=== PATIENT | male | born 1965 | race Caucasian/White ===

== ENCOUNTER 2025-02-28 00:46 | Day surgery (SDC) | payer BC, SELFPAY ==
[2025-02-03 13:54] VITALS: BMI 29.3
--- OUTSIDE RECORDS SUMMARY | 2025-02-28 00:51 | XMS_ITS | Continuity of Care Document ---
Author Organization [facility] Address [address] [place] [address] Phone Care Team Providers Care Emr Analyst Name Role Phone Tai Holley DO Unavailable Unavailable Advance Directives Directive Yes / No Effective Date File Name No Information Encounters Encounter Description Practice Location Reason(s) For Visit Diagnoses Date Provider Providers [facility] [address], [place], [place], [id number], [place] tel:[phone] [facility] No Information Leydi Mejia. [address] [place], [address], [place]. tel: [phone] Family History Family Member Type Diagnosis Age At Onset No Information Payers Payer name Insurance type Covered libertarian ID Authoriza tion(s) No Information Social History Type Description Quantity Date Captured Comments Sex Male Smoking Status No Information Chief Complaint And Reason For Visit No Information Reason For Referral Reason For Referral No Information History Of Present Illness Encounter Date Complaint History Of Prese nt Illness No Information Functional Status Date Functional Assessmen t No Information Instructions Date Instruction Additional Infor mation No Information Assessments Type Assessment Date No Information Patient Care Teams Name Effective Dates (start - stop) Status Members No Information
--- OUTSIDE RECORDS SUMMARY | 2025-02-28 00:51 | XMS_ITS | Data Portability ---
Author Organization [facility] Lucero Duong Address [address] [place] [address] Care Team Providers Care Lumber Hacker Name Role Phone GEENA HAM Primary Care Provider Assessment Encounter Date Assessment Date Assessment LastModified by Organization Details LastModified Time 01/06/2024 01/06/2024 Podiatry. Diabetic eye exam. Blood work. Neurology. Continue current therapy. Follow-up 4 months. Not available 01/31/2024 18:06:32 09/07/2024 09/07/2024 blood work. Healthy lifestyle care instructions. Colonoscopy. Declines pneumococcal vaccination orthopedic referral for trigger finger follow up 6 months podiatry for diabetic foot exam [email or web address] Not available 09/11/2024 18:52:16 Plan of Treatment Reminders Order Date Submit Date Provider Last Modified By Organization Details Last Modified Time Details Appointments ANY 15 2024 09:00A M Geena Ham MD Not available Not available Not available Lab HbA1c (hemoglob in A1c), blood 2024 025 KRISTY Chacon, [address], [address], [place], [address], 09/08/2024 06:20:09 albumin/c reatinine , mass ratio, urine 2024 025 KRISTY Chacon, [address], [address], [place], [address], 09/08/2024 06:20:06 CBC w/ auto diff 2024 025 KRISTY Chacon, [address]22 [address], [address], [place], [address], 09/08/2024 06:20:10 CMP, serum or plasma 2024 025 [place] [facility], [address], [address], [place], [address], 09/08/2024 06:20:08 lipid panel, serum 2024 025 [facility], [address], [address], [place], [address], 09/08/2024 06:20:07 vitamin B12 + folate, serum or blood 2023 024 [facility], [facility] [address], [address], [place], [address], 01/07/2024 08:25:24 CBC w/ auto diff 2023 024 [facility], [facility] [address], [address], [place], [address], 01/07/2024 08:25:26 CMP, serum or plasma 2023 024 [facility], [address] [place], [place] [address], [address], [place], [address], 01/07/2024 08:25:23 RPR (rapid plasma reagin), serum 2023 024 [facility], [address] [place], [place] [address], [address], [place], [address], 01/07/2024 08:25:28 PSA, total, serum or plasma 2023 024 [facility], [address] [facility] [address], [address], [place], [address], 01/07/2024 08:25:29 HbA1c (hemoglob in A1c), blood 2023 024 [facility], [address] [facility], [address], [place], [address], 01/07/2024 08:25:25 albumin/c reatinine , mass ratio, urine 2023 024 [facility], [address] [facility], [address], [place], [address], 01/07/2024 08:25:20 lipid panel, serum 2023 024 KRISTY [facility], [address] [facility], [address], [place], [address], 01/07/2024 08:25:21 Referral orthopedi c surgeon referral 2024 025 KRISTY Morejon MD, [address], [place], [address], 09/14/2024 13:10:[address] referral 2023 024 KRISTY Lynn MD, [address] [facility], [address], [address], 02/05/2024 13:44:10 podiatris t referral 2023 024 [facility]IR[facility], [address], [address], [place], [address], 01/31/2025 12:27:34 Procedures colonosco py screening (PROC) 2024 025 [facility], [address], [address], [place], [address], 01/25/2025 16:43:31 Surgeries None recorded. Imaging None recorded. Medication Orders None recorded. Patient TargetsNo targets recorded. Patient Instructions Encounter Date Encounter Id Patient Instructions Last Modified By Organization Details Last Modified Time 01/06/2024 [id number] diabetic eye exam* KRISTY Not available 02/12/2024 10:26:38 09/07/2024 [id number] A healthy lifestyle: care instructions [email or web address] Not available 09/07/2024 11:42:18 Reason for Referral Director Financial Planning Referral for Type 2 diabetes mellitus Referring Physician: Geena Ham, Internal Medicine, Encounter Date: 01/06/2024 Neurologist Referral for Mem ory impairment Referring Physician: Geena Ham, Internal Medicine, Encounter Date: 01/06/2024 Orthopedic Surgeon Referral for Trigger finger of right hand Referring Physician: Geena Ham, Internal Medicine, Encounter Date: 09/07/2024 Results Created Date Observation Date Name Description Value Unit Range Abnormal Flag Note LastModifiedBy Organization Detail LastModifiedTime 01/06/20 24 01/07/2024 ALBUM IN/CR EATIN INE RATIO ,URIN E creatinine, urine 97.0 mg/dL notest ab. Not Available [facility] ([facility]) [address] [place], [address], 01/07/2024 08:25:20 01/06/20 24 01/07/2024 ALBUM IN/CR EATIN INE RATIO ,URIN E albumin, urine 6.6 ug/mL notest ab. Not Available [facility] ([facility]) [address] [place], [address], 01/07/2024 08:25:20 01/06/20 24 01/07/2024 ALBUM IN/CR EATIN INE RATIO ,URIN E alb/creat ratio 7 mg/g_ creat 0-29 Kandi l: 0 - 29 Moder ately incre ased: 30 - 300 Sever soy incre ased: >300 Not Available [facility] ([facility]) [address] [place], [address], 01/07/2024 08:25:20 01/06/20 24 01/07/2024 LIPID PANEL cholesterol, total 198 mg/dL 100-19 9 Not Available [facility] ([facility]) [address] [place], [address], 01/07/2024 08:25:21 01/06/20 24 01/07/2024 LIPID PANEL triglyceride s 173 mg/dL 0-149 above high normal Not Available [facility] ([facility]) [address] [place], [address], 01/07/2024 08:25:21 01/06/20 24 01/07/2024 LIPID PANEL HDL cholesterol 34 mg/dL >39 below low normal Not Available [facility] ([facility]) [address] [place], [address], 01/07/2024 08:25:21 01/06/20 24 01/07/2024 LIPID PANEL VLDL cholesterol nate 31 mg/dL 5-40 Not Available [facility] ([facility]) [address] [place], [address], 01/07/2024 08:25:21 01/06/20 24 01/07/2024 LIPID PANEL LDL chol calc ([facility]) 133 mg/dL 0-99 above high normal Not Available [facility] ([facility]) [address] [place], [address], 01/07/2024 08:25:21 01/06/20 24 01/07/2024 COMP. METAB OLIC PANEL (14) glucose 170 mg/dL 70-99 above high normal Not Available [facility] ([facility]) [address] [place], [address], 01/07/2024 08:25:23 01/06/20 24 01/07/2024 COMP. METAB OLIC PANEL (14) BUN 19 mg/dL 6-24 Not Available [facility] ([facility]) [address] [place], [address], 01/07/2024 08:25:23 01/06/20 24 01/07/2024 COMP. METAB OLIC PANEL (14) creatinine 0.97 mg/dL 0.76-1 .27 Not Available [facility] ([facility]) [address] [facility], [place], [address], 01/07/2024 08:25:23 01/06/20 24 01/07/2024 COMP. METAB OLIC PANEL (14) eGFR 92 mL/mi n/1.7 3 >59 Not Available [facility] ([facility]) [address] [facility], [place], [address], 01/07/2024 08:25:23 01/06/20 24 01/07/2024 COMP. METAB OLIC PANEL (14) BUN/creatini ne ratio 20 -20 Not Available [facility] ([facility]) [address] [facility], [place], [address], 01/07/2024 08:25:23 01/06/20 24 01/07/2024 COMP. METAB OLIC PANEL (14) sodium 138 mmol/ L 134-14 4 Not Available [facility] ([facility]) [address] [facility] [place], [address], 01/07/2024 08:25:23 01/06/20 24 01/07/2024 COMP. METAB OLIC PANEL (14) potassium 4.9 mmol/ L 3.5-5. 2 Not Available [facility] ([facility]) [address] [facility] [place], [address], 01/07/2024 08:25:23 01/06/20 24 01/07/2024 COMP. METAB OLIC PANEL (14) chloride 102 mmol/ L 96-106 Not Available [facility] ([facility]) [address] [facility] [place], [address], 01/07/2024 08:25:23 01/06/20 24 01/07/2024 COMP. METAB OLIC PANEL (14) carbon dioxide, total 22 mmol/ L 20-29 Not Available [facility] ([facility]) [address] [place], [address], 01/07/2024 08:25:23 01/06/20 24 01/07/2024 COMP. METAB OLIC PANEL (14) calcium 9.8 mg/dL 8.7-10 .2 Not Available [facility] ([facility]) [address] [place], [address], 01/07/2024 08:25:23 01/06/20 24 01/07/2024 COMP. METAB OLIC PANEL (14) protein, total 6.9 g/dL 6.0-8. 5 Not Available [facility] ([facility]) [address] [facility] [place], [address], 01/07/2024 08:25:23 01/06/20 24 01/07/2024 COMP. METAB OLIC PANEL (14) albumin 4.6 g/dL 3.8-4. 9 Not Available [facility] ([facility]) [address] [facility], [place], [address], 01/07/2024 08:25:23 01/06/20 24 01/07/2024 COMP. METAB OLIC PANEL (14) globulin, total 2.3 g/dL 1.5-4. 5 Not Available [facility] ([facility]) [address] [facility] [place], [address], 01/07/2024 08:25:23 01/06/20 24 01/07/2024 COMP. METAB OLIC PANEL (14) A/G ratio 2.0 1.2-2. 2 Not Available [facility] ([facility]) [address] [facility] [place], [address], 01/07/2024 08:25:23 01/06/20 24 01/07/2024 COMP. METAB OLIC PANEL (14) bilirubin, total 0.4 mg/dL 0.0-1. 2 Not Available [facility] ([facility]) [address] [place], [address], 01/07/2024 08:25:23 01/06/20 24 01/07/2024 COMP. METAB OLIC PANEL (14) alkaline phosphatase 92 IU/L 44-121 Not Available [facility] ([facility]) [address] [place], [address], 01/07/2024 08:25:23 01/06/20 24 01/07/2024 COMP. METAB OLIC PANEL (14) AST (SGOT) 15 IU/L 0-40 Not Available [facility] ([facility]) [address] [place], [address], 01/07/2024 08:25:23 01/06/20 24 01/07/2024 COMP. METAB OLIC PANEL (14) ALT (SGPT) 24 IU/L 0-44 Not Available [facility] ([facility]) [address] [facility] [place], [address], 01/07/2024 08:25:23 01/06/20 24 01/07/2024 VITAM IN B12 AND FOLAT E vitamin B12 692 pg/mL 232-12 45 Not Available [facility] ([facility]) [address] [facility] [place], [address], 01/07/2024 08:25:24 01/06/20 24 01/07/2024 VITAM IN B12 AND FOLAT E folate (folic acid), serum 5.8 NG/mL >3.0 A serum folat e angela ntrat ion of less than 3.1 ng/mL is consi dered to repre sent clini nate defic iency . Not Available [facility] ([facility]) [address] [facility] [place], [address], 01/07/2024 08:25:24 01/06/20 24 01/07/2024 HEMOG LOBIN A1C hemoglobin A1C 8.4 % 4.8-5. 6 above high normal Predi abete s: 5.7 - 6.4 Diabe carmina: >6.4 Glyce tonny contr ol for adult s with diabe carmina: <7.0 Not Available [facility] ([facility]) [address] [place], [address], 01/07/2024 08:25:25 01/06/20 24 01/07/2024 CBC WITH DIFFE RENTI AL/PL ATELE T WBC 5.9 x10e3 /uL 3.4-10 .8 Not Available [facility] ([facility]) [address] [facility], [place], [address], 01/07/2024 08:25:26 01/06/2001/07/2024 CBC WITH DIFFE RENTI AL/PL ATELE T RBC 6.30 x10e6 /uL 4.14-5 .80 above high normal Not Available [facility] ([facility]) [address] [facility], [place], [address], 01/07/2024 08:25:26 01/06/20 24 01/07/2024 CBC WITH DIFFE RENTI AL/PL ATELE T hemoglobin 17.5 g/dL 13.0-1 7.7 Not Available [facility] ([facility]) [address] [place], [address], 01/07/2024 08:25:26 01/06/20 24 01/07/2024 CBC WITH DIFFE RENTI AL/PL ATELE T hematocrit 50.7 % 37.5-5 1.0 Not Available [facility] ([facility]) [address] [place], [address], 01/07/2024 08:25:26 01/06/2001/07/2024 CBC WITH DIFFE RENTI AL/PL ATELE T MCV 81 fL 79-97 Not Available [facility] ([facility]) [address] [place], [address], 01/07/2024 08:25:26 01/06/20 24 01/07/2024 CBC WITH DIFFE RENTI AL/PL ATELE T MCH 27.8 pg 26.6-3 3.0 Not Available [facility] ([facility]) [address] [facility], [place], [address], 01/07/2024 08:25:26 01/06/20 24 01/07/2024 CBC WITH DIFFE RENTI AL/PL ATELE T MCHC 34.5 g/dL 31.5-3 5.7 Not Available [facility] ([facility]) [address] [facility], [place], [address], 01/07/2024 08:25:26 01/06/20 24 01/07/2024 CBC WITH DIFFE RENTI AL/PL ATELE T RDW 14.7 % 11.6-1 5.4 Not Available [facility] ([facility]) [address] [facility], [place], [address], 01/07/2024 08:25:26 01/06/20 24 01/07/2024 CBC WITH DIFFE RENTI AL/PL ATELE T platelets 247 x10e3 /uL 150-45 0 Not Available [facility] ([facility]) [address] [facility], [place], [address], 01/07/2024 08:25:26 01/06/20 24 01/07/2024 CBC WITH DIFFE RENTI AL/PL ATELE T neutrophils 65 % notest ab. Not Available [facility] ([facility]) [address] [facility], [place], [address], 01/07/2024 08:25:26 01/06/20 24 01/07/2024 CBC WITH DIFFE RENTI AL/PL ATELE T lymphs 24 % notest ab. Not Available [facility] ([facility]) [address] [facility], [place], [address], 01/07/2024 08:25:26 01/06/20 24 01/07/2024 CBC WITH DIFFE RENTI AL/PL ATELE T monocytes 7 % notest ab. Not Available [facility] ([facility]) [address] [facility], [place], [address], 01/07/2024 08:25:26 01/06/20 24 01/07/2024 CBC WITH DIFFE RENTI AL/PL ATELE T eos 3 % notest ab. Not Available [facility] ([facility]) [address] [facility], [place], [address], 01/07/2024 08:25:26 01/06/20 24 01/07/2024 CBC WITH DIFFE RENTI AL/PL ATELE T basos 1 % notest ab. Not Available [facility] ([facility]) [address] [facility], [place], [address], 01/07/2024 08:25:26 01/06/20 24 01/07/2024 CBC WITH DIFFE RENTI AL/PL ATELE T neutrophils (absolute) 3.9 x10e3 /uL 1.4-7. 0 Not Available [facility] ([facility]) [address] [facility], [place], [address], 01/07/2024 08:25:26 01/06/20 24 01/07/2024 CBC WITH DIFFE RENTI AL/PL ATELE T lymphs (absolute) 1.4 x10e3 /uL 0.7-3. 1 Not Available [facility] ([facility]) [address] [place], [address], 01/07/2024 08:25:26 01/06/20 24 01/07/2024 CBC WITH DIFFE RENTI AL/PL ATELE T monocytes(ab solute) 0.4 x10e3 /uL 0.1-0. 9 Not Available [facility] ([facility]) [address] [facility], [place], [address], 01/07/2024 08:25:26 01/06/20 24 01/07/2024 CBC WITH DIFFE RENTI AL/PL ATELE T eos (absolute) 0.2 x10e3 /uL 0.0-0. 4 Not Available [facility] ([facility]) [address] [place], [address], 01/07/2024 08:25:26 01/06/20 24 01/07/2024 CBC WITH DIFFE RENTI AL/PL ATELE T baso (absolute) 0.1 x10e3 /uL 0.0-0. 2 Not Available [facility] ([facility]) [address] [place], [address], 01/07/2024 08:25:26 01/06/20 24 01/07/2024 CBC WITH DIFFE RENTI AL/PL ATELE T immature granulocytes 0 % notest ab. Not Available [facility] ([facility]) [address] [place], [address], 01/07/2024 08:25:26 01/06/20 24 01/07/2024 CBC WITH DIFFE RENTI AL/PL ATELE T immature grans (abs) 0.0 x10e3 /uL 0.0-0. 1 Not Available [facility] ([facility]) [address] [place], [address], 01/07/2024 08:25:26 01/06/20 24 01/07/2024 RPR RPR NON REACTI VE nonrea ctive Not Available [facility] ([facility]) [address] [place], [address], 01/07/2024 08:25:28 01/06/20 24 01/07/2024 PROST ATE-S PECIF IC AG prostate specific Ag 4.0 NG/mL 0.0-4. 0 New ECLIA metho dolog y. Accor ding to the Ameri can [employer] g[employer] iatio n, Serum PSA shoul d decre ase and remai n at undet ectab le level s after radic al prost atect robert. The AUA defin es bioch emica l recur rence as an initi al PSA value 0.2 ng/mL or great er follo wed by a subse quent confi rmato ry PSA value 0.2 ng/mL or great er. Value s obtai bhavesh with diffe rent assay metho ds or kits canno t be used inter jacobs eably . Resul ts canno t be inter prete d as absol crow evide nce of the prese nce or absen ce of [facility] ji [facility] se. Not Available [facility] ([facility]) [address] [facility], [place], [address], 01/07/2024 08:25:29 09/07/19 25 09/08/2024 ALBUM IN/CR EATIN INE RATIO ,URIN E creatinine, urine 69.3 mg/dL notest ab. Not Available [facility] ([facility]) [address] [place], [address], 09/08/2024 06:20:06 09/07/19 25 09/08/2024 ALBUM IN/CR EATIN INE RATIO ,URIN E albumin, urine 3.9 ug/mL notest ab. Not Available [facility] ([facility]) [address] [facility], [place], [address], 09/08/2024 06:20:06 09/07/19 25 09/08/2024 ALBUM IN/CR EATIN INE RATIO ,URIN E alb/creat ratio 6 mg/g_ creat 0-29 Kandi l: 0 - 29 Moder ately incre ased: 30 - 300 Sever soy incre ased: >300 Not Available [facility] ([facility]) [address] [place], [address], 09/08/2024 06:20:06 09/07/19 25 09/08/2024 LIPID PANEL cholesterol, total 158 mg/dL 100-19 9 Not Available [facility] ([facility]) [address] [place], [address], 09/08/2024 06:20:07 09/07/19 25 09/08/2024 LIPID PANEL triglyceride s 153 mg/dL 0-149 above high normal Not Available [facility] ([facility]) [address] [place], [address], 09/08/2024 06:20:07 09/07/19 25 09/08/2024 LIPID PANEL HDL cholesterol 33 mg/dL >39 below low normal Not Available [facility] ([facility]) [address] [place], [address], 09/08/2024 06:20:07 09/07/19 25 09/08/2024 LIPID PANEL VLDL cholesterol nate 27 mg/dL 5-40 Not Available [facility] ([facility]) [address] [place], [address], 09/08/2024 06:20:07 09/07/19 25 09/08/2024 LIPID PANEL LDL chol calc ([facility]) 98 mg/dL 0-99 Not Available [facility] ([facility]) [address] [place], [address], 09/08/2024 06:20:07 09/07/19 25 09/08/2024 COMP. METAB OLIC PANEL (14) glucose 173 mg/dL 70-99 above high normal Not Available [facility] ([facility]) [address] [place], [address], 09/08/2024 06:20:08 09/07/19 25 09/08/2024 COMP. METAB OLIC PANEL (14) BUN 17 mg/dL 6-24 Not Available [facility] ([facility]) [address] [place], [address], 09/08/2024 06:20:08 09/07/19 25 09/08/2024 COMP. METAB OLIC PANEL (14) creatinine 0.95 mg/dL 0.76-1 .27 Not Available [facility] ([facility] [address] [facility] [place], [address], 09/08/2024 06:20:08 09/07/19 25 09/08/2024 COMP. METAB OLIC PANEL (14) eGFR 93 mL/mi n/1.7 3 >59 Not Available [facility] ([facility]) [address], [place], [address], 09/08/2024 06:20:08 09/07/19 25 09/08/2024 COMP. METAB OLIC PANEL (14) BUN/creatini ne ratio 18 9-20 Not Available [facility] ([facility]) [address] [facility], [place], [address], 09/08/2024 06:20:08 09/07/19 25 09/08/2024 COMP. METAB OLIC PANEL (14) sodium 139 mmol/ L 134-14 4 Not Available [facility] ([facility]) [address] [facility], [place], [address], 09/08/2024 06:20:08 09/07/19 25 09/08/2024 COMP. METAB OLIC PANEL (14) potassium 4.8 mmol/ L 3.5-5. 2 Not Available [facility] ([facility]) [address] [facility], [place], [address], 09/08/2024 06:20:08 09/07/19 25 09/08/2024 COMP. METAB OLIC PANEL (14) chloride 102 mmol/ L 96-106 Not Available [facility] ([facility]) [address] [facility] [place], [address], 09/08/2024 06:20:08 09/07/19 25 09/08/2024 COMP. METAB OLIC PANEL (14) carbon dioxide, total 24 mmol/ L 20-29 Not Available [facility] ([facility]) [address] [facility] [place], [address], 09/08/2024 06:20:08 09/07/19 25 09/08/2024 COMP. METAB OLIC PANEL (14) calcium 9.8 mg/dL 8.7-10 .2 Not Available [facility] ([facility]) [address], [place], [address], 09/08/2024 06:20:08 09/07/19 25 09/08/2024 COMP. METAB OLIC PANEL (14) protein, total 6.8 g/dL 6.0-8. 5 Not Available [facility] ([facility]) [address], [place], [address], 09/08/2024 06:20:08 09/07/19 25 09/08/2024 COMP. METAB OLIC PANEL (14) albumin 4.5 g/dL 3.8-4. 9 Not Available [facility] ([facility]) [address], [place], [address], 09/08/2024 06:20:08 09/07/19 25 09/08/2024 COMP. METAB OLIC PANEL (14) globulin, total 2.3 g/dL 1.5-4. 5 Not Available [facility] ([facility]) [address], [place], [address], 09/08/2024 06:20:08 09/07/19 25 09/08/2024 COMP. METAB OLIC PANEL (14) bilirubin, total 0.3 mg/dL 0.0-1. 2 Not Available [facility] ([facility]) [address], [place], [address], 09/08/2024 06:20:08 09/07/19 25 09/08/2024 COMP. METAB OLIC PANEL (14) alkaline phosphatase 112 IU/L 44-121 Not Available [facility] ([facility]) [address], [place], [address], 09/08/2024 06:20:08 09/07/19 25 09/08/2024 COMP. METAB OLIC PANEL (14) AST (SGOT) 17 IU/L 0-40 Not Available [facility] ([facility]) [address] [place], [address], 09/08/2024 06:20:08 09/07/1909/08/2024 COMP. METAB OLIC PANEL (14) ALT (SGPT) 26 IU/L 0-44 Not Available [facility] ([facility]) [address] [place], [address], 09/08/2024 06:20:08 09/07/19 25 09/08/2024 HEMOG LOBIN A1C hemoglobin A1C 9.2 % 4.8-5. 6 above high normal Predi abete s: 5.7 - 6.4 Diabe carmina: >6.4 Glyce tonny contr ol for adult s with diabe carmina: <7.0 Not Available [facility] ([facility]) [address] [place], [address], 09/08/2024 06:20:09 09/07/19 25 09/07/2024 CBC WITH DIFFE RENTI AL/PL ATELE T WBC 7.1 x10e3 /uL 3.4-10 .8 Not Available [facility] ([facility]) [address] [place], [address], 09/08/2024 06:20:10 09/07/1909/07/2024 CBC WITH DIFFE RENTI AL/PL ATELE T RBC 6.29 x10e6 /uL 4.14-5 .80 above high normal Not Available [facility] ([facility]) [address] [place], [address], 09/08/2024 06:20:10 09/07/19 25 09/07/2024 CBC WITH DIFFE RENTI AL/PL ATELE T hemoglobin 17.1 g/dL 13.0-1 7.7 Not Available [facility] ([facility]) [address] [place], [address], 09/08/2024 06:20:10 09/07/19 25 09/07/2024 CBC WITH DIFFE RENTI AL/PL ATELE T hematocrit 51.5 % 37.5-5 1.0 above high normal Not Available [facility] ([facility]) [address] [facility], [place], [address], 09/08/2024 06:20:10 09/07/19 25 09/07/2024 CBC WITH DIFFE RENTI AL/PL ATELE T MCV 82 fL 79-97 Not Available [facility] ([facility]) [address] [facility], [place], [address], 09/08/2024 06:20:10 09/07/19 25 09/07/2024 CBC WITH DIFFE RENTI AL/PL ATELE T MCH 27.2 pg 26.6-3 3.0 Not Available [facility] ([facility]) [address] [facility], [place], [address], 09/08/2024 06:20:10 09/07/19 25 09/07/2024 CBC WITH DIFFE RENTI AL/PL ATELE T MCHC 33.2 g/dL 31.5-3 5.7 Not Available [facility] ([facility]) [address] [place], [address], 09/08/2024 06:20:10 09/07/19 25 09/07/2024 CBC WITH DIFFE RENTI AL/PL ATELE T RDW 13.7 % 11.6-1 5.4 Not Available [facility] ([facility]) [address] [place], [address], 09/08/2024 06:20:10 09/07/19 25 09/07/2024 CBC WITH DIFFE RENTI AL/PL ATELE T platelets 311 x10e3 /uL 150-45 0 Not Available [facility] ([facility]) [address] [place], [address], 09/08/2024 06:20:10 09/07/19 25 09/07/2024 CBC WITH DIFFE RENTI AL/PL ATELE T neutrophils 65 % notest ab. Not Available [facility] ([facility]) [address] [facility], [place], [address], 09/08/2024 06:20:10 09/07/19 25 09/07/2024 CBC WITH DIFFE RENTI AL/PL ATELE T lymphs 25 % notest ab. Not Available [facility] ([facility]) [address] [facility], [place], [address], 09/08/2024 06:20:10 09/07/19 25 09/07/2024 CBC WITH DIFFE RENTI AL/PL ATELE T monocytes 6 % notest ab. Not Available [facility] ([facility]) [address] [facility], [place], [address], 09/08/2024 06:20:10 09/07/19 25 09/07/2024 CBC WITH DIFFE RENTI AL/PL ATELE T eos 2 % notest ab. Not Available [facility] ([facility]) [address] [facility], [place], [address], 09/08/2024 06:20:10 09/07/19 25 09/07/2024 CBC WITH DIFFE RENTI AL/PL ATELE T basos 1 % notest ab. Not Available [facility] ([facility]) [address] [facility], [place], [address], 09/08/2024 06:20:10 09/07/19 25 09/07/2024 CBC WITH DIFFE RENTI AL/PL ATELE T neutrophils (absolute) 4.5 x10e3 /uL 1.4-7. 0 Not Available [facility] ([facility]) [address] [facility], [place], [address], 09/08/2024 06:20:10 09/07/19 25 09/07/2024 CBC WITH DIFFE RENTI AL/PL ATELE T lymphs (absolute) 1.8 x10e3 /uL 0.7-3. 1 Not Available [facility] ([facility]) [address] [facility], [place], [address], 09/08/2024 06:20:10 09/07/19 25 09/07/2024 CBC WITH DIFFE RENTI AL/PL ATELE T monocytes(ab solute) 0.4 x10e3 /uL 0.1-0. 9 Not Available [facility] ([facility]) [address] [facility], [place], [address], 09/08/2024 06:20:10 09/07/19 25 09/07/2024 CBC WITH DIFFE RENTI AL/PL ATELE T eos (absolute) 0.1 x10e3 /uL 0.0-0. 4 Not Available [facility] ([facility]) [address] [facility], [place], [address], 09/08/2024 06:20:10 09/07/19 25 09/07/2024 CBC WITH DIFFE RENTI AL/PL ATELE T baso (absolute) 0.1 x10e3 /uL 0.0-0. 2 Not Available [facility] ([facility]) [address] [facility], [place], [address], 09/08/2024 06:20:10 09/07/19 25 09/07/2024 CBC WITH DIFFE RENTI AL/PL ATELE T immature granulocytes 1 % notest ab. Not Available [facility] ([facility]) [address] [place], [address], 09/08/2024 06:20:10 09/07/19 25 09/07/2024 CBC WITH DIFFE RENTI AL/PL ATELE T immature grans (abs) 0.1 x10e3 /uL 0.0-0. 1 Not Available [facility] ([facility]) [address] [place], [address], 09/08/2024 06:20:10 Result Notes None recorded. Problems Name Problem SNOMED Code Status Onset Date Resolution Date Notes Provider Name and Address Organization Details Recorded Time Type 2 diabetes mellitus 57451341 Active 2023 GALI [place], [place] - [place] 4 10:45:59 Screening for malignant neoplasm of prostate Active 2023 GAL[place] 4 10:49:45 Memory impairment 822186049 Active 2023 GAL[place] 4 10:49:46 Anxiety 44980872 Active 2023 GALI [place] 4 10:49:47 Hyperlipide megan 50692607 Active 2024 GALI [place] 5 10:52:30 Trigger finger of right hand 2993721560091 9101 Active 2024 GALI [place] 5 10:52:31 Problem Notes None recorded. Procedures Surgical History Date Name Laterality Status Provider Name and Address Organization Details Recorded Time Cholecystectomy completed Marlene Edwards [place] - [place] 01/06/2024 10:13:02 Imaging Results None recorded. Procedure Notes None recorded. Medical Equipment None Reported. Allergies Allergen ID Allergen Name Allergen Category Reaction Reaction Severity Criticality Documentation Date Start Date Code Code System Note Provider Name and Address Organization Details Recorded Time 981552 Tamiflu medicatio n insomnia Not available Not available 01/06/2024 78232 7 RxNorm GALI [place], [place] - [place] 4 10:07:59 884389 metformin medicatio n diarrhea Not available Not available 09/10/2024 6809 RxNorm GALI [place], [place] - [place] 5 11:41:59 Medications Name Sig Start Date Stop Date Status Note LastModified by Organization Details LastModified Time atorvastatin 10 mg tablet TAKE 1 TABLET BY MOUTH EVERY DAY active Not Available Not Available No t Available clonazepam 1 mg tablet TAKE 1 TABLET BY MOUTH EVERY DAY NEEDED active Not Available Not Available No t Available alprazolam 0.5 mg tablet 09/11 completed Not Available Not Available Not Available lorazepam 2 mg tablet TAKE 1 TABLET ONE HOUR BEFORE MRI. MAY REPEAT ONCE IF NOT SEDATED IN ONE HOUR. DO NOT DRIVE WITH MED active Not Available Not Available No t Available Farxiga 10 mg tablet TAKE 1 TABLET BY MOUTH EVERY DAY active Not Available Not Available No t Available Jardiance 10 mg tablet TAKE 1 TABLET BY MOUTH EVERY DAY 01/05 completed Not Available Not Available Not Available Vitals Date Recorded Body height Body mass index (BMI) Body weight Heart rate Oxygen saturation Oxygen saturation in Arterial blood by Pulse oximetry Systolic And Diastolic Provider Name and Address Organization Details Last Updated DateTime 5 170.18 cm 30.9 kg/m2 92445.7 g 86 /min 98 % 98 % 118/62 mm[Hg] Reena Chapa MA [facility] 5 10:28:00 Date Recorded Body weight Body mass index (BMI) Body height Heart rate Oxygen saturation Oxygen saturation in Arterial blood by Pulse oximetry Systolic And Diastolic Provider Name and Address Organization Details Last Updated DateTime 4 99659.8 8 g 31.2 kg/m2 170.18 cm 82 /min 97 % 97 % 124/82 mm[Hg] Marlene Edwards MA [facility] 4 10:09:41 Social History Question Answer Notes LastModified by Organizat ion Details LastModified Time Tobacco Smoking Status Never Smoker Marlene Edwards MA [facility] 01/06/2024 10:08:19 Do You Have An Advance Directive? No Information n ot available 09/07/2024 Are You Blind Or Do You Have Difficulty Seeing? No Information n ot available 01/06/2024 What Is Your Level Of Caffeine Consumption? Moderate Information not available 09/07/2024 In The 14 Days Before Symptom Onset, Have You Had Close Contact With A Laboratory-confirm ed COVID-19 While That Case Was Ill? No Information n ot available 09/07/2024 In The 14 Days Before Symptom Onset, Have You Had Close Contact With A Person Who Is Under Investigation For COVID-19 While That Person Was Ill? No Information not available 09/07/2024 Have You Been To An Area Known To Be High Risk For COVID-19? No Information not available 09/07/2024 Are You Deaf Or Do You Have Serious Difficulty Hearing? Yes Information not available 01/06/2024 What Type Of Diet Are You Following? REGULAR Information n ot available 09/07/2024 Are There Any Guns Present In Your Home? No Information not available 09/07/2024 What Was The Date Of Your Most Recent Tobacco Screening? 09/07/2024 Information not available 09/07/2024 What Is Your Relationship Status? Information not available 01/06/2024 Do You Use Your Seat Belt Or Car Seat Routinely? Yes Information not available 01/06/2024 Do You Have Smoke And Carbon Monoxide Detectors In Your Home? Yes Information not available 09/07/2024 Do You Use Sunscreen Routinely? Yes Information not available 09/07/2024 Has Tobacco Cessation Counseling Been Provided? No Information not available 09/07/2024 Sex: Male Functional Status Question Answer Note LastModified by Organizat ion Details LastModified Time Do you use any illicit or recreational drugs? No Information not available 09/07/2024 Do you or have you ever used any other forms of tobacco or nicotine? No Information not available 09/07/2024 What is your level of alcohol consumption? None Information not available 01/06/2024 Are you able to care for yourself? Yes Information not available 01/06/2024 What is your exercise level? None Information not available 09/07/2024 Mental Status Question Answer Note LastModified by Organization D etails LastModified Time Do you feel stressed (tense, restless, nervous, or anxious, or unable to sleep at night)? [id number] Information not available 01/06/2024 Family History Relationship Description Onset Age of this Age Resolved Age Notes LastModified by Organization Details LastModified Time Mother Asthma [email or web address] Not available 01/06/2024 10:13:36 Mother Diabetes mellitus [email or web address] Not available 2023 10:13:46 Brother Harmful pattern of use of alcohol apaytonma Not available 2023 10:13:41 Notes:cancer-father Medical History Condition Response Diabetes Y Asthma Y Past Encounters Encounter ID Performer Location Encounter Start Date Encounter Closed Date Diagnosis/Indication Diagnosis SNOMED-CT Code Diagnosis ICD10 Code Diagnosis Note [id number] Geena Ham MD [facility] (Adult Med) [address] [place] [address] [phone] 0 01/06/2024 09:52:48 01/06/2024 11:02:39 Type 2 diabetes mellitus 19480394 E11.9 Anxiety 70426086 F41.9 Memory impairment 008066 006 R41.3 Screening for malignant neoplasm of prostate 702947548 Z12.5 Screening for cardiovascular system disease 298057384 Z13.6 [id number] Geena Ham MD [facility] (Adult Med) [address] [place] [address] [phone] 0 09/07/2024 10:03:19 09/07/2024 10:51:42 Body mass index 30+ - obesity 644715950 Z68.30 Obesity 016156750 E66.9 Type 2 samara betes mellitus 19763503 E11.9 Trigger fi nger of right hand 0088058586 1853277 M65.30 Hyperlipidemia 23353999 E78.5 Screening for malignant neoplasm of colon 377878486 Z12.11 Health Concerns Section Related Observation LastModified by Organization Detai ls LastModified Time None Recorded Concern Status LastModified by Organization Details LastModified Time None Recorded Advance Directives Directive N: Payers Insurance Date Sequence Insurance Name Policy Number Policy Joe Covered Member ID Joe Member ID Guarantor Name 10/08/2024 1 [place] [id number] Harley Ashton [id number] Harley Ashton Notes Date Note Type Note Provider Name and Address Organization Details Recorded Time 01/06/2024 text/html 58-year-old follow-up on his diabetes no polyphagia polydipsia he needs to see a md ophthalmologist and diabetic eye exam. Anxiety has been fairly well-controlled on current medications he thinks he had a little bit of impaired memory Geena Ham MD Attn: [address] , [place], [address], [facility] - SI 01/31/2024 18:06:50 09/07/2024 text/html diabetes needs s ome blood work no polyphagia polydipsia polydipsia or hypoglycemia. Hyperlipidemia he is taking his atorvastatin no side effects. Panic disorder has been fairly well controlled with the clonazepam. Trigger finger 4th finger right hand Geena Ham MD Attn: [employer] , [place], [address], [facility] - SI 09/11/2024 18:52:34
--- OUTSIDE RECORDS SUMMARY | 2025-02-28 00:51 | XMS_ITS | Continuity of Care Document ---
Author Organization [facility] Address [address] [place] [address] [address] [place] [address] Phone Care Team Providers Care Advertising Photographer Name Role Phone Gilma Carrion OT Unavailable Unavailable Procedures Procedure Date Identified as not an unhealthy alcohol u ser Not identified as unhealthy alcohol via screening OT Re-Evaluation Neuromuscular Re-Ed Therapeutic Activities Therapeutic Exercise Manual Therapy Hot or Cold Pack Paraffin Bath Therapeutic Activities Neuromuscular Re-Ed Therapeutic Exercise Manual Therapy Paraffin Bath Hot or Cold Pack Therapeutic Activities Neuromuscular Re-Ed Therapeutic Exercise Manual Therapy Hot or Cold Pack Paraffin Bath Therapeutic Activities Neuromuscular Re-Ed Therapeutic Exercise Hot or Cold Pack Manual Therapy Paraffin Bath Therapeutic Activities Neuromuscular Re-Ed Therapeutic Exercise Manual Therapy Hot or Cold Pack Paraffin Bath Identified as not an unhealthy alcohol u ser Not identified as unhealthy alcohol via screening OT Evaluation Low Complexity Therapeutic Activities Neuromuscular Re-Ed Therapeutic Exercise Hot or Cold Pack Manual Therapy Paraffin Bath THERAPEUTIC EXERCISES NEUROMUSCULAR RE-ED MANUAL THERAPY HOT/COLD PACK THERAPEUTIC EXERCISES NEUROMUSCULAR RE-ED MANUAL THERAPY HOT/COLD PACK THERAPEUTIC EXERCISES NEUROMUSCULAR RE-ED MANUAL THERAPY HOT/COLD PACK THERAPEUTIC EXERCISES NEUROMUSCULAR RE-ED MANUAL THERAPY THERAPEUTIC EXERCISES NEUROMUSCULAR RE-ED MANUAL THERAPY PT Evaluation Low Complexity THERAPEUTIC EXERCISES NEUROMUSCULAR RE-ED HOT/COLD PACK ELECTRIC STIMULATION UNATT Advance Directives Directive Yes / No Effective Date File Name No Information Encounters Encounter Description Practice Location Reason(s) For Visit Diagnoses Date Provider Providers Copied on Encounter [facility], [place], [place], [id number], tel:[phone] Joshua No Information 4 Sheyla Dillard. . Referring Provider: [address], [place], [address]. tel:[phone] [facility] [address], [place], [place], [id number], tel:[phone] Joshua No Information 4 Sheyla Dillard. . Referring Provider: [address], [place], [address]. tel:[phone] [facility], [place], [place], [address], [place] tel:[phone] Joshua No Information 4 Carrion Gilma. . Referring Provider: [address], [place], [address]. tel:[phone] [facility], [place], [place], [address], [place] tel:[phone] Joshua No Information 4 Carrion Gilma. . Referring Provider: [address], [place], [address]. tel:[phone] [facility], [place], [place], [address], [place] tel:[phone] Joshua No Information 4 Carrion Gilma. . Referring Provider: [address], [place], [address]. tel:[phone] [place] [address], [place], [place], [address], [place] tel:[phone] Joshua No Information 4 Carrion Gilma. . Referring Provider: [address], [place], [address]. tel:[phone] [facility], [place], [place], [address], [place] tel:[phone] Joshua No Information 7 Trey Calhoun. , [place], [place]. [facility], [place], [place], [address], [place] tel:[phone] Joshua No Information 2 7 Trey Calhoun. , [place], [place]. [facility], [place], [place], [id number], [place] tel:[phone] Joshua No Information Nov-2 - 7 Trey Westn. , [place], [place]. [facility], [place], [place], [address], tel:[phone] Shalonda No Information Trey Mcdonnell , [place], [place]. [facility], [place], [place], [address], tel:[phone] Shalonda No Information Trey Mcdonnell , [place], [place]. [facility], [address], [place], [place], [address], tel:[phone] Shalonda Strain unsp musc/fasc/tend at shldr/up arm, right arm, subsContusion of right elbow, subsequent encounterPain in right shoulder Trey Mcdonnell , [place], [place]. Family History Family Member Type Diagnosis Age At Onset No Information Payers Payer name Insurance type Covered republican ID Alyssa redmanpaulina(s) [facility] [id number] Social History Type Description Quantity Date Captured Comments Alcohol Use Details Unknown Caffeine Use Details Unknown Tobacco Use Status Current non-smoker Smoking Status Never smoker Non-Smoking Tobacco Use Details : No Details Available : No Details Available Sex Male Chief Complaint And Reason For Visit No [...]
--- OUTSIDE RECORDS SUMMARY | 2025-02-28 00:51 | XMS_ITS | Data Portability ---
Author Organization [place] [facility], Main Office Address [address] [place] [address] Assessment Encounter Date Assessment Date Assessment LastModified by Organization Details LastModified Time 11/28/2022 11/28/2022 Diabetes A1c targets discussed Hyperlipidemia triglycerides and LDL targets discussed Obesity dietary strategies discussed Panic disorder clonazepam rtc 4 mos [email or web address] Not available 11/29/2022 13:10:55 09/18/2023 09/18/2023 Will continue current therapy he will follow-up in 4 months wishes to hold off on blood work for couple months [email or web address] Not available 09/18/2023 21:23:40 Plan of Treatment Reminders Order Date Submit Date Provider Last Modified By Organization Details Last Modified Time Details Appointments None recorded. Lab CMP, serum or plasma 023 023 [email or web address] Not available 4 14:20:41 lipid panel, serum 023 023 [email or web address] Not available 4 14:20:41 PSA, serum or plasma 023 023 [email or web address] Not available 4 14:20:41 HbA1c (hemoglob in A1c), blood 023 023 [email or web address] Not available 14:20:40 Referral None recorded. Procedures None recorded. Surgeries None recorded. Imaging None recorded. Medication Orders Farxiga 10 mg tablet 024 024 [id number] [id number], [address], [place], [address], 19:11:19 Patient TargetsNo targets recorded. Patient InstructionsNo instructions recorded. Reason for Referral None Reported. Results Created Date Observation Date Name Description Value Unit Range Abnormal Flag Note LastModifiedBy Organization Detail LastModifiedTime 11/22/1911/21/2022 COMPR EHENS MILAGROS METAB OLIC PANEL sodium 137 mmol/ L 137-14 5 Not Available [facility] (Lab) [address] [place], [address], 11/21/2022 19:18:48 11/22/19 23 11/21/2022 COMPR EHENS MILAGROS METAB OLIC PANEL potassium 4.5 mmol/ L 3.5-5. 1 Not Available [facility] (Lab) [address] [place], [address], 11/21/2022 19:18:48 11/22/19 23 11/21/2022 COMPR EHENS MILAGROS METAB OLIC PANEL chloride 105 mmol/ L 98-107 Not Available [facility] (Lab) [address] [place], [address], 11/21/2022 19:18:48 11/22/19 23 11/21/2022 COMPR EHENS MILAGROS METAB OLIC PANEL carbon dioxide 27 mmol/ L 22-30 Not Available [facility] (Lab) [address] [place], [address], 11/21/2022 19:18:48 11/22/19 23 11/21/2022 COMPR EHENS MILAGROS METAB OLIC PANEL anion gap 9.5 mmol/ L 14-22 low Not Available [facility] (Lab) [address] [place], [address], 11/21/2022 19:18:48 11/22/19 23 11/21/2022 COMPR EHENS MILAGROS METAB OLIC PANEL glucose 194 mg/dL 70-99 high Not Available [facility] (Lab) [address] [place], [address], 11/21/2022 19:18:48 11/22/19 23 11/21/2022 COMPR EHENS MILAGROS METAB OLIC PANEL BUN 22 mg/dL 8-19 high Not Available [facility] (Lab) [address] [place], [address], 11/21/2022 19:18:48 11/22/19 23 11/21/2022 COMPR EHENS MILAGROS METAB OLIC PANEL creatinine 0.86 mg/dL 0.66-1 .25 Not Available [facility] (Lab) [address] [place], [address], 11/21/2022 19:18:48 11/22/19 23 11/21/2022 COMPR EHENS MILAGROS METAB OLIC PANEL GFR >60 Refer ence Range : [place] GFR Healt hy Adult : >60 mL/mi n/1.7 3 m2 Chron ic Kidne y Disea se: 15-60 mL/mi n/1.7 3 m2 Kidne y Failu re: <15/m L/min /1.73 m2 www.n iddk. nih.g ov The MDRD study equat ion has not been valid ated in child helen <18 years of age; pregn ant women ; the elder ly >85 years of age; or in some racia l or ethni c subgr oups, such as wa nics. Outsi de the valid ated jhony eters , estim ated GFR is less accur ate, requi ring clini nate judgm ent on a case- by-ca se basis . Clini nate inter preta tion for other races and ages must be made by the clini odalys. The MDRD study equat ion has not been valid ated for the evalu ation of serum creat inine relat ed to nutri bennett l statu s or medic ation usage . For perso ns <18 years of age, a pedia tric GFR calcu lator is avail able on the [facility] websi te: https :[email or web address] hartman.stacy valentine.o rg/pr ofess ional s/kdo qi/gf r_cal culat or Not Available [facility] (Lab) [address] [place], [address], 11/21/2022 19:18:48 11/22/19 23 11/21/2022 COMPR EHENS MILAGROS METAB OLIC PANEL alkaline phosphatase 79 U/L 38-126 Not Available [facility] (Lab) [address] [place], [address], 11/21/2022 19:18:48 11/22/19 23 11/21/2022 COMPR EHENS MILAGROS METAB OLIC PANEL alanine aminotransfe rase 27 U/L 0-50 Not Available [facility] (Lab) [address] [place], [address], 11/21/2022 19:18:48 11/22/19 23 11/21/2022 COMPR EHENS MILAGROS METAB OLIC PANEL aspartate aminotransfe rase 21 U/L 15-46 Not Available [facility] (Lab) [address] [place], [address], 11/21/2022 19:18:48 11/22/19 23 11/21/2022 COMPR EHENS MILAGROS METAB OLIC PANEL bilirubin, total 0.40 mg/dL 0.20-1 .30 Not Available [facility] (Lab) [address] [place], [address], 11/21/2022 19:18:48 11/22/19 23 11/21/2022 COMPR EHENS MILAGROS METAB OLIC PANEL calcium 9.1 mg/dL 8.4-10 .2 Not Available [facility] (Lab) [address] [place], [address], 11/21/2022 19:18:48 11/22/19 23 11/21/2022 COMPR EHENS MILAGROS METAB OLIC PANEL total protein 7.0 g/dL 6.3-8. 2 Not Available [facility] (Lab) [address] [place], [address], 11/21/2022 19:18:48 11/22/19 23 11/21/2022 COMPR EHENS MILAGROS METAB OLIC PANEL albumin 4.3 g/dL 3.4-5. 0 Not Available [facility] (Lab) [address] [place], [address], 11/21/2022 19:18:48 11/22/19 23 11/21/2022 COMPR EHENS MILAGROS METAB OLIC PANEL globulin 2.7 g/dL 2.6-4. 2 Not Available [facility] (Lab) [address] [place], [address], 11/21/2022 19:18:48 11/22/19 23 11/21/2022 COMPR EHENS MILAGROS METAB OLIC PANEL A/G ratio 1.6 ratio 1.0-2. 0 Not Available [facility] (Lab) [address] [place], [address], 11/21/2022 19:18:48 11/22/19 23 11/21/2022 LIPID PANEL cholesterol 194 mg/dL 140-19 9 NIH LAZARO NSUS RECOM MENDA TION FOR CHITRA STERO L: ADULT CHILD LOW RISK: <200 <170 BORDE RLINE : <200- 239 ----- HIGH RISK: >240 >200 Not Available [facility] (Lab) [address] [place], [address], 11/21/2022 19:18:54 11/22/1911/21/2022 LIPID PANEL triglyceride s 351 mg/dL 0-150 high NIH LAZARO NSUS REPOR T RECOM MENDA TION FOR TRIGL YCERI KHUSHI: ADULT CHILD LOW RISK: <150 ----- BODER LINE: 150-1 99 ----- HIGH RISK: >200 ----- Not Available [facility] (Lab) [address] [place], [address], 11/21/2022 19:18:54 11/22/19 23 11/21/2022 LIPID PANEL HDL cholesterol 33 mg/dL 40- low Not Available [facility] (Lab) [address] [place], [address], 11/21/2022 19:18:54 11/22/19 23 11/21/2022 LIPID PANEL LDL cholesterol, calculated 91 mg/dL 0-130 NIH LAZARO NSUS REPOR T RECOM MENDA TIONS FOR LDL: ADULT CHILD LOW RISK <130 <110 (OPTI MAL LDL) <100 ----- BORDE RLINE : 130-1 59 ----- HIGH RISK: >160 >130 A TRIGL YCERI DE RESUL T >400 INVAL IDATE S THE CALCU LATIO N FOR LDL FRACT IONAT ION - THE LDL RESUL T WILL NOT BE REPOR SHAN. Not Available [facility] (Lab) [address] [place], [address], 11/21/2022 19:18:54 11/22/19 23 11/21/2022 HEMOG LOBIN A1C HA1C 7.7 % 4.0-6. 0 high Diabe carmina Scree santos Crite janelle: <5.7% Consi stent with absen ce of diabe carmina 5.7-6 .4% Consi stent with incre ased risk for diabe carmina (pred iabet es) >OR=6 .5% Consi stent with diabe carmina REFER ENCE: Diabe carmina Care 2016, 39(Gonzalez ppl.1 ):s13 -s22 Not Available [facility] (Lab) [address] [place], [address], 11/21/2022 21:47:31 07/02/20 22 07/02/2022 XR, chest , 2 view [facility] [address] [place] [address] Patien t Name: ANA CALIXTO Access ion #: [id number] Sex: M : 1964 5 Locati on: RAD Attend ing Physic estrellita: BETH HMA Orderi ng Physic estrellita: BETH HAM Exam Date: 9:16 AM Exam Name: XR CHEST 2V Admitt ing Diagno sis(es ): RADIOL OGY REPORT - FINAL EXAM: XR CHEST 2V HISTOR Y: ACUTE COUGH 56-yea r-old male with cough, chest conges tion, histor y of asthma . COMPAR DINESH: Chest x-ray and chest CT dated 2017. TECHNI QUE: PA and latera l views of the chest were perfor med. FINDIN GS: No pneumo thorax , pulmon sandra edema, or consol idativ e infilt rates. The heart is not enlarg ed. No fractu res are identi fied about the bony thorax . IMPRES NAKUL: No acute intrat horaci c proces s. Page 1 of 2 [facility] t Name: ANA CALIXTO Balbina Venkata Access ion #: [id number] Sex: M : 1964 5 Exam Date: 9:16 AM Exam Name: XR CHEST 2V Admitt ing Diagno sis(es ): Create d and electr onical ly signed by: Lazarus daniel MD Signed Date: 9:33 AM (CT) Dictat ed by: Lazarus daniel MD DD: 9:33 AM (CT) DT: 9:33 AM (CT) Page 2 of 2 [id number] [facility] (Imaging) [address] [place], [address], 10/23/2022 13:20:28 Result Notes Documentation Provider Name and Address Organization Details Recorded Time Xr, Chest, 2 View : [facility] [address] [place], [place] [id number] Patient Name: HUAN ASHTONLANDEN Hastings Sex: M : 1965 Location: [facility] Attending Physician: GEENA HAM Ordering Physician: GEENA HAM Exam Date: 07/02/2022 9:16 AM Exam Name: XR CHEST 2V Admitting Diagnosis(es): RADIOLOGY REPORT - FINAL EXAM: XR CHEST 2V HISTORY: ACUTE COUGH 56-year-old male with cough, chest congestion, history of asthma. COMPARISON: Chest x-ray and chest CT dated 05/08/2018. TECHNIQUE: PA and lateral views of the chest were performed. FINDINGS: No pneumothorax, pulmonary edema, or consolidative infiltrates. The heart is not enlarged. No fractures are identified about the bony thorax. IMPRESSION: No acute intrathoracic process. Page 1 of 2 [facility] Patient Name: HARLEY ASHTON Sex: M : 1965 Exam Date: 07/02/2022 9:16 AM Exam Name: XR CHEST 2V Admitting Diagnosis(es): Created and electronically signed by: Lazarus Hi MD Signed Date: 07/02/2022 9:33 AM (CT) Dictated by: Lazarus Hi MD (CT) (CT) Page 2 of 2 Not Available [facility] 10/23/2022 13:20:29 Problems Name Problem SNOMED Code Status Onset Date Resolution Date Notes Provider Name and Address Organization Details Recorded Time Nocturia 954057070 Active Not Available [facility] 3 15:19:16 Pain of right shoulder joint 7618425508374 9100 Active 2021 Not Available [facility] 3 15:19:16 Partial thickness rotator cuff tear 889369112 Active 2021 Not Available [facility] 3 15:19:16 Osteoarthr itis of hip 137286739 Active Not Available [facility] 3 15:19:16 Hypertrigl yceridemia 840190977 Active 2018 Not Available [facility] 3 15:19:16 Pain in left foot 5068331174689 07 Active 2021 Not Available [facility] 3 15:19:16 Panic disorder 524943655 Active 2019 Not Available [facility] 3 15:19:16 Pain of hip region 19061852 Active Not Available [facility] 3 15:19:16 Cough 39471182 Active 2021 Not Available [facility] 3 15:19:16 Upper respirator y infection 10905496 Active 2021 Not Available [facility] 3 15:19:16 Diabetes mellitus 58268071 Active 2019 Not Available [facility] 3 15:19:16 Notes:Some problems listed i n Document: #[id number] could not be added to this patient's chart. Please review this document and add these problems to the patient's chart manually as needed. Problem Notes None recorded. Procedures Surgical History Date Name Laterality Status Provider Name and Address Organization Details Recorded Time 11/12/19 22 Rotator cuff surgery completed Not Available [facility] 10/23/2022 13:17:14 fixation of mandible completed Not Available [facility] 10/23/2022 13:17:14 Cholecystectomy completed Not Available [facility] 10/23/2022 13:17:14 Imaging Results None recorded. Procedure Notes None recorded. Medical Equipment None Reported. Allergies Allergen ID Allergen Name Allergen Category Reaction Reaction Severity Criticality Documentation Date Start Date Code Code System Note Provider Name and Address Organization Details Recorded Time 15653 Tamiflu medicatio n hives Not available Not available 10/23/2022 15119 7 RxNorm Not Available [facility] 3 13:20:24 Medications Name Sig Start Date Stop Date Status Note LastModified by Organization Details LastModified Time Prescript ion - Prior Authoriza tion Request active Not Available Not Available Not Available cyclobenz aprine 10 mg tablet 01/03 completed Not Available Not Available Not Available metformin 500 mg tablet active Not Available Not Available Not Available prednison e 10 mg tablet Take 3x 2days, 2 x 2 days, 1x 2 days active Not Available Not Available No t Available doxycycli ne hyclate 100 mg capsule Take 1 capsule twice a day by oral route for 7 days. 11/28 completed Not Available Not Available Not Available triamcino lone acetonide 0.5 % topical cream active Not Available Not Available Not Available azithromy viridiana 250 mg tablet TAKE 2 TABLETS (500 MG) BY ORAL ROUTE ONCE DAILY FOR 1 DAY THEN 1 TABLET (250 MG) BY ORAL ROUTE ONCE DAILY FOR 4 DAYS 11/28 completed Not Available Not Available Not Available ibuprofen 800 mg tablet 01/03 completed Not Available Not Available Not Available benzonata te 200 mg capsule Take 1 capsule 3 times a day by oral route for 7 days. 11/28 completed Not Available Not Available Not Available prednison e 20 mg tablet 11/28 completed Not Available Not Available Not Available dexametha sone 6 mg tablet Take 1 tablet every day by oral route for 10 days. active Not Available Not Available No t Available clonazepa m 1 mg tablet TAKE 1 TABLET EVERY DAY BY ORAL ROUTE NEEDED. active Not Available Not Available No t Available penicilli n V potassium 500 mg tablet 01/03 completed Not Available Not Available Not Available omeprazol e 40 mg capsule,d elayed release 01/03 completed Not Available Not Available Not Available acetamino phen 500 mg tablet 02/21 completed Not Available Not Available Not Available alprazola m 0.5 mg tablet active PRN Not Available Not Available Not Available amoxicill in 875 mg tablet 01/03 completed Not Available Not Available Not Available tamsulosi n 0.4 mg capsule Take 1 capsule every day by oral route at bedtime. 05/19 completed Not Available Not Available Not Available benzonata te 100 mg capsule 11/28 completed Not Available Not Available Not Available cephalexi n 500 mg capsule 12/17 completed Not Available Not Available Not Available monteluka st 10 mg tablet Take 1 tablet every day by oral route. active Not Available Not Available No t Available codeine 10 mg-guaife nesin 100 mg/5 mL oral liquid 05/19 completed Not Available Not Available Not Available mupirocin 2 % topical ointment active Not Available Not Available Not Available lorazepam 1 mg tablet Take 1 tablet as needed by oral route. 10/15 completed Not Available Not Available Not Available methylpre dnisolone 4 mg tablets in a dose pack 01/03 completed Not Available Not Available Not Available doxycycli ne hyclate 100 mg tablet Take 1 tablet twice a day by oral route for 7 days. 11/28 completed Not Available Not Available Not Available oxycodone 5 mg tablet 12/17 completed Not Available Not Available Not Available Flovent HFA 110 mcg/actua tion aerosol inhaler active Not Available Not Available Not Available ProAir HFA 90 mcg/actua tion aerosol inhaler INHALE 2 PUFFS EVERY 4 HOURS NEEDED active Not Available Not Available No t Available OneTouch Verio test strips active Not Available Not Available Not Available Farxiga 10 mg tablet TAKE 1 TABLET BY MOUTH EVERY DAY active Not Available Not Available No t Available Farxiga 5 mg tablet Take by oral route for 30 days. 03/22 completed changed to 10mg see pt case 03/21/20 22 Not Available Not Available Not Available Jardiance 10 mg tablet Take 1 tablet every day by oral route. active Not Available Not Available No t Available Arnuity Ellipta 100 mcg/actua tion powder for inhalatio n active Not Available Not Available Not Available Vitals Date Recorded Body height Body mass index (BMI) Body weight Body temperature Heart rate Systolic And Diastolic Provider Name and Address Organization Details Last Updated DateTime 4 170.18 cm 31.8 kg/m2 27657.2 5 g 97.9 [degF] 89 /min 142/80 mm[Hg] Vicky Giron Joaquina [employer] [facility] Earnest 4 14:16:41 Date Recorded Body height Body mass index (BMI) Body weight Body temperature Heart rate Systolic And Diastolic Provider Name and Address Organization Details Last Updated DateTime 3 170.18 cm 30.5 kg/m2 31948.5 1 g 97.6 [degF] 77 /min 126/82 mm[Hg] Vicky Giron Joaquina [facility] [employer] [facility] 3 15:24:26 Date Recorded Body height Provider Name an d Address Organization Details Last Updated DateTime 02/21/2022 170.18 cm Not Available [facility] 3 13:17:31 Date Recorded Body height Provider Name an d Address Organization Details Last Updated DateTime 03/21/2022 170.18 cm Not Available [facility] 3 13:17:31 Date Recorded Body height Heart rate Body temperature Body weight Systolic And Diastolic Provider Name and Address Organization Details Last Updated DateTime 05/14/2022 170.18 cm 107 /min 97.6 [degF] 52428.8 8 g 110/72 mm[Hg] Not Available [facility] 13:17:29 Social History Question Answer Notes LastModified by Organizat ion Details LastModified Time Tobacco Smoking Status Never Smoker YE [place] [facility] 09/18/2023 14:10:27 Do You Have An Advance Directive? No [id number] Information not available 10/23/2022 What Is Your Level Of Caffeine Consumption? Occasional [id number] Information not available 10/23/2022 How Much Tobacco Do You Chew? None [id number] Information not available 10/23/2022 In The 14 Days Before Symptom Onset, Have You Had Close Contact With A Laboratory-confi rmed COVID-19 While That Case Was Ill? No [email or web address] Information not available 09/18/2023 In The 14 Days Before Symptom Onset, Have You Had Close Contact With A Person Who Is Under Investigation For COVID-19 While That Person Was Ill? No [email or web address] Information not available 09/18/2023 What Type Of Diet Are You Following? REGULAR [id number] Information not available 10/23/2022 Which Illicit Or Recreational Drugs Have You Used? None [email or web address] Information not available 09/18/2023 What Is The Highest Grade Or Level Of School You Have Completed Or The Highest Degree You Have Received? [id number] Information not available 09/18/2023 Have There Been Any Changes To Your Family Or Social Situation? No [email or web address] Information not available 09/18/2023 What Is The Fluoride Status Of Your Home? Unknown [email or web address] Information not available 09/18/2023 Are There Any Guns Present In Your Home? Yes [email or web address] Information not available 09/18/2023 Do You Use Insect Repellent Routinely? No [email or web address] Information not available 09/18/2023 Where Do You Live? SingleLevelHouse Information not available 09/18/2023 Do You Have A Medical Power Of Research Consultant? No [email or web address] Information not available 09/18/2023 What Was The Date Of Your Most Recent Tobacco Screening? 09/18/2023 [email or web address] Information not available 09/18/2023 Do You Have Any Pets? Yes [email or web address] Information not available 09/18/2023 What Is Your Relationship Status? [id number] Information not available 10/23/2022 Do You Use Your Seat Belt Or Car Seat Routinely? Yes [email or web address] Information not available 09/18/2023 Do You Have Smoke And Carbon Monoxide Detectors In Your Home? Yes [email or web address] Information not available 09/18/2023 Are You Passively Exposed To Smoke? No [email or web address] Information not available 09/18/2023 Are There Any Smokers In Your House? No [email or web address] Information not available 09/18/2023 How Much Tobacco Do You Smoke? No [id number] Information not available 10/23/2022 What Types Of Sporting Activities Do You Participate In? None [email or web address] Information not available 09/18/2023 Do You Use Sunscreen Routinely? No [email or web address] Information not available 09/18/2023 Has Tobacco Cessation Counseling Been Provided? No Not Needed-ev er Smoked [email or web address] Information not available 09/18/2023 How Many Years Have You Smoked Tobacco? 0 [email or web address] Information not available 09/18/2023 Have You Recently Traveled Abroad? No [email or web address] Information not available 09/18/2023 Do You Have Any Dietary Restrictions? No [email or web address] Information not available 09/18/2023 Sex: Male Functional Status Question Answer Note LastModified by Organizat ion Details LastModified Time Do you use any illicit or recreational drugs? No Information not available 09/18/2023 Do you or have you ever used any other forms of tobacco or nicotine? No [email or web address] Information not available 09/18/2023 What is your level of alcohol consumption? None [id number] Information not available 10/23/2022 Do you or have you ever used smokeless tobacco? Never used smokeless tobacco [id number] Information not available 10/23/2022 What is your occupation? teacher Information not available 09/18/2023 Do you or have you ever used e-cigarettes or vape? Never used electronic cigarettes [email or web address] Information not available 09/18/2023 What is your exercise level? Occasional [id number] Information not available 10/23/2022 Mental Status Question Answer Note LastModified by Organization D etails LastModified Time Do you feel stressed (tense, restless, nervous, or anxious, or unable to sleep at night)? [id number] Information not available 09/18/2023 Family History Relationship Description Onset Age of this Age Resolved Age Notes LastModified by Organization Details LastModified Time Mother General health good [email or web address] Not available 14:10:25 Father Malignant neoplasm of lung [email or web address] Not available 08/26 14:10:25 Unspecified Relation Hypertensive disorder [id number] Not available 10/23/2022 13:17:15 Medical History Condition Response NERVE DISEASE N BLINDNESS N RHEUMATIC FEVER N KIDNEY STONES N BLADDER PROBLEMS N MRSA N OTHER # 1 Y POLIO N LUNG DISEASE/DISORDER N COPD N RADIATION / CHEMOTHERAPY N Other # 2 N BLOOD DISEASES N EAR OR HEARING PROBLEMS N MUMPS N DEPRESSION (INCLUDING POST ) N BOWEL PROBLEMS N STROKE/TIA N ULCERS N BENIGN PROSTATIC HYPERPLASIA N MEASLES N MYOCARDIAL INFARCTION N OBESITY N GERD/NAUSEA N ANEURYSM N URINARY/BLADDER/KIDNEY PROBLEMS Y CORONARY ARTERY DISEASE (CAD) N ADDICTION CONCERNS N Impotence N ENDOMETRIOSIS N USE OF BLOOD THINNERS N SKIN PROBLEMS N GASTROINTESTINAL DISORDER N PERIPHERAL VASCULAR DISEASE N MUSCLE,JOINT OR BONE PROBLEMS N GASTROINTESTINAL BLEEDING N BLOOD CLOTS N ASTHMA N CATARACTS N ERECTILE DYSFUNCTION N VARICOSITIES N GI PROBLEMS N Low Testosterone N INFERTILITY N AIDS/HIV N CHEMOTHERAPY / RADIATION N LIVER DISEASE N MALE HYPOGONADISM N HYPERTENSION N Deficiency N TOURETTE'S N ANXIETY DISORDER N BLOOD TRANSFUSION N ANEMIA/BLOOD DISORDER N CHRONIC EAR INFECTIONS N BRONCHITIS N TUBERCULOSIS N GLAUCOMA N FOOT PROBLEM N DIVERTICULITIS N SLEEP APNEA N CHICKENPOX N INFECTIOUS DISEASE N PROSTATE N HEART ARRHYTHMIA N INSOMNIA N HIGH CHOLESTEROL / HYPERLIPIDEMIA N EYE PROBLEMS N HYPERTHYROIDISM N EDEMA N CHRONIC PAIN SYNDROME N HYPOTHYROIDISM N CAROTID BLOCKAGE N CONSTIPATION N BACK / NECK PROBLEMS N HAVE YOU BEEN HOSPITALIZED OR SEEN IN [facility] IN THE PAST YEAR ? N ATHEROSCLEROSIS N BREAST PROBLEMS N DIALYSIS N ECZEMA N OSTEOPOROSIS N ARTHRITIS Y APPENDICITIS N DIABETES, TYPE Y BAD TEETH N ENT N HEARTBURN / REFLUX N AUTISM SPECTRUM DISORDER (ASD) N HEPATITIS / LIVER DISEASE N GOUT N SLEEP DISORDER N ALZHEIMER'S DISEASE N Brain Problems N DEMENTIA N HERPES N SEIZURES/EPILEPSY N HEADACHES/MIGRAINES N VASCULAR DISEASE N PACEMAKER N Blood Disorder N DIZZINESS N HEART DISEASE/HEART PROBLEMS N KIDNEY DISEASE N MULTIPLE SCLEROSIS N CANCER: SPECIFY N CARDIAC ARRHYTHMIA N ATRIAL FIBRILLATION N Gall Stones N PULMONARY EMBOLISM N AUTOIMMUNE DISEASE N Immunizations Vaccine Type Date Status Note Provider Nam e and Address Organization Details Recorded Time COVID-19, mRNA, LNP-S, PF, 100 mcg/0.5mL dose or 50 mcg/0.25mL dose 11/04/2020 completed Not Available [facility] 3 15:19:16 COVID-19, mRNA, LNP-S, PF, 100 mcg/0.5mL dose or 50 mcg/0.25mL dose 10/07/2020 completed Not Available [facility] 3 15:19:16 Past Encounters Encounter ID Performer Location Encounter Start Date Encounter Closed Date Diagnosis/Indication Diagnosis SNOMED-CT Code Diagnosis ICD10 Code Diagnosis Note [id number] Geena Ham MD [facility] [address] [place] [address] [place] [address] 01/09/2021 00:00:00 01/09/2021 10:19:03 [id number] Geena Ham MD [facility] Internal Med [address] [place] [address] 08/30/2021 00:00:00 09/01/2021 17:29:11 [id number] Roman Monzon MD [facility] [place] [address] [facility] [address] [place] [address] 09/21/2021 00:00:00 09/21/2021 16:29:15 [id number] Roman [facility]zon [facility] [place] [address] [facility] [address] [place] [address] 10/15/2021 00:00:00 10/21/2021 12:41:39 [id number] Roman Monzon MD [facility] [place] [address] [facility] [address] [place] [address] 11/19/2021 00:00:00 11/19/2021 17:58:18 [id number] Roman Monzon MD [facility] [place] [address] [facility] [address] [place] [address] 12/17/2021 00:00:00 12/17/2021 14:21:09 [id number] Roman Monzon MD [facility]_[address] [address] 01/17/2022 00:00:00 01/17/2022 15:45:03 [id number] Roman Monzon MD [facility]_[address] [address] 02/21/2022 00:00:00 02/21/2022 11:28:09 [id number] Roman Monzon MD [facility]_[address] [address] 03/21/2022 00:00:00 03/21/2022 09:24:21 [id number] Geena aHm MD [facility] Internal Med [address] [place] [address] 05/14/2022 00:00:00 05/19/2022 14:13:27 [id number] Geena Ham MD [facility] Internal Med [address] [place] [address] 11/28/2022 15:14:54 11/28/2022 16:53:59 Diabetes mellitus 34021419 E11.9 Hypertriglyceridemia 302 115105 E78.1 Screening for malignant neoplasm of prostate 435382393 Z12.5 [id number] Geena Ham MD [facility] Internal Med [facility] [address] [place] , [facility] [address] [place] [address] 09/18/2023 14:07:28 09/18/2023 14:58:02 Renewal of prescription 537571940 Z76.0 Diabetes mellitus 450538 09 E11.9 Hypertriglyceridemia 302 408381 E78.1 Panic disorder 984103147 F41.0 Health Concerns Section Related Observation LastModified by Organization Detai ls LastModified Time None Recorded Concern Status LastModified by Organization Details LastModified Time None Recorded Advance Directives Directive N: Payers Insurance Date Sequence Insurance Name Policy Number Policy Joe Covered Member ID Joe Member ID Guarantor Name 07/26/2024 1 [employer] [id number] Harley Hastings Daisha [id number] Harley Hastings Daisha 07/26/2024 [facility] Harley Ashton SELF SELF Harley Hastings Daisha 09/18/2023 1 [employer] [id number] Harley Ashton [id number] Harley Ashton Notes Date Note Type Note Provider Name and Address Organization Details Recorded Time 3 text/html Panic disorder doing fine on clonazepamDiabetes A1c 7.7 needs to work on diet exerciseHyperlipidemia triglycerides up Geena Ham MD [address], [place], [address], [employer] 11/29/2022 13:33:47 4 text/html Diabetes blood sugars have been doing fairly wellSome insomnia and problems at night with panicTries follow low-fat diet for his lipid abnormalityHe did take a new job in interval less stressed Geena Ham MD [address], [place], [address], [employer] 09/18/2023 21:23:56
--- OUTSIDE RECORDS SUMMARY | 2025-02-28 00:51 | XMS_ITS | Clinical Summary ---
Author Organization [facility] Address [address] [place] [address] Care Team Providers Care Ecological Modeler Name Role Phone Mo Ham MD Primary Care Provider [phone] Tiara Rome RN Unavailable Cindy vailable Allergies Active Allergy Reactions Criticality Noted Date Comments Oseltamivir Hives Medium 06/02/2019 Medications clonazePAM (KlonoPIN) 1 mg tablet 0 Active dapagliflozin (FARXIGA) 5 mg tablet 2 tablets (10 mg total) 0 Active albuterol HFA (Ventolin HFA) 90 mcg/actuation inhaler Inhale 2 puffs every 4 (four) hours as needed for wheezing or shortness of breath 18 g 1 1 Active fluticasone furoate (ARNUITY) 100 mcg/actuation inhaler Inhale 1 puff daily Rinse mouth with water after use. Do not swallow. 90 each 3 3 Active LORazepam (Ativan) 2 mg tabletIndicatio ns:Memory loss Take one tablet one hour before MRI. May repeat once if not sedated in one hour. Do not drive with Ativan 2 tablet 5 Active Active Problems Problem Noted Date Diagnosed Date Memory loss 09/28/2024 Ataxia 09/28/2024 Pain in shoulder 05/31/2014 Laryngopharyngeal reflux 05/09/2014 Dysphonia 04/15/2014 Arthralgia of hip 03/25/2013 Chronic cough Encounters Date Type Department Care Team Description 02/07/2025 9:00 AM CDT Office Visit [facility] [address] [place] [address] [address] [place] [address] Mo Lynn MD Memory loss (Primary Dx); Ataxia 01/24/2025 8:00 AM CDT Clinical Support [facility] [address] [facility] [address] [place] [address] Tito Falcon, PhD Memory loss from Last 3 Months Immunizations Immunization Administration Dates Next Due Influenza, Quadrivalent, Estee l Culture-based MDCK, Preservative Free, Antibiotic Free, Intramuscular 09/11/2022 Surgical History Surgery Date Site/Laterality Comments CHOLECYSTECTOMY ROTATOR CUFF REPAIR Medical History Medical History Date Comments High cholesterol Family History Medical History Relation Name Comments Cancer Father Family history of malignant neoplasm - (Added by TW Conv) Relation Name Status Comments Father Social History Tobacco Use Types Packs/Day Years Used Date Smoking Tobacco: Never Smokeless Tobacco: Never Tobacco Cessation:Counseling Given: Not Answered Sex and Gender Information Value Date Recorded Sex Assigned at Not on file 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 Gender Identity Not on file Sexual Orientation Not on file Obstetrics History Last Filed Vital Signs Vital Sign Reading Time Taken Comments Blood Pressure 124/81 02/07/2025 9:01 AM CDT Pulse 80 02/07/2025 9:01 AM CDT Temperature 36.7 C (98.1 F) 01/01/2023 8:10 AM CDT Respiratory Rate 18 01/01/2023 8:10 AM CDT Oxygen Saturation 97% 02/07/2025 9:01 AM CDT Inhaled Oxygen Concentration - - Weight 87.1 kg (192 lb) 02/07/2025 9:01 AM CDT Height 170.2 cm (5' 7) 02/07/2025 9:01 AM CDT Body Mass Index 30.07 02/07/2025 9:01 AM CDT Plan of Treatment Health Maintenance Due Date Last Done Comments Colon Cancer Screening-Colonoscopy 1965 Depression Screening 1965 Hepatitis C Screening 1965 Prostate Cancer Screening-PSA 1967 DTaP/Tdap/Td Vaccine (1 - Tdap) 1978 Hepatitis B Screening 1985 Regular Well Visit/Exam 18-64 1985 Zoster Vaccine (1 of 2) 2017 Covid-19 Vaccine (3 2023-2 5 season) 2024 11/04/2020, 10/07/2020 Influenza Vaccine (Season Ended) 2025 09/11/2022 Pneumococcal vaccine <65 Aged Out No longer eligible based on patient's age to complete this topic Insurance [employer] [place] [employer] [place] [facility] Care Teams Ecological Modeler Relationship Specialty Start Date End Date Mo Ham MD PCP - General Internal Medicine 06/02/19 Tiara Rome, RN Registered Nurse Pulmonary Disease 09/10/22
--- OUTSIDE RECORDS SUMMARY | 2025-02-28 00:51 | XMS_ITS | Referral Summary ---
Author Organization [facility] Address [address] [place] [address] Care Team Providers Care Hospice Massage Therapist Name Role Phone Mo Ham MD Primary Care Provider [phone] Tiara Rome RN Unavailable Cindy vailable Encounters Date Type Department Care Team Description 02/07/2025 9:00 AM CDT Office Visit [facility] [address] [place] [address] [address] [phone] Mo Lynn MD Memory loss (Primary Dx); Ataxia 01/24/2025 8:00 AM CDT Clinical Support [facility] [address] [facility] [address] [place] [phone] Tito Falcon, PhD Memory loss from Last 3 Months Allergies Active Allergy Reactions Criticality Noted Date [...] 04/15/2014 Arthralgia of hip 03/25/2013 Chronic cough Immunizations Immunization Administration Dates Next Due Influenza, Quadrivalent, Estee l Culture-based MDCK, Preservative Free, Antibiotic Free, Intramuscular 09/11/2022 Social History Tobacco Use Types Packs/Day Years Used Date Smoking Tobacco: Never Smokeless Tobacco: Never Tobacco Cessation:Counseling Given: Not Answered Sex and Gender Information Value Date Recorded Sex Assigned at Not on file 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
[2025-02-28 07:05] VITALS: BP 125/86; PULSE 91; RESP 18; TEMP 36.3; O2SAT 99; BMI 30.1
[2025-02-28] MEDS: LACTATED RINGERS 1,000 ML 150 ML IV CONT (07:20)
--- NOTE | 2025-02-28 07:29 | WPDANESEPPF ---
Anes - Initial Pre Proc Eval Procedure: Operation Date: 02/28/25 08:00 Proposed Procedures p Screening Colonoscopy - Gm Carrington MD Date/Time: 02/28/25 07:29 Surgeon: Gm Carrington MD Pre Op Diagnosis: screening Patient Data Age: 59 Gender: M Height: 1.7 m Weight: 87.3 kg Last Vital Signs Temp 97.3 F L 02/28/25 07:05 Pulse 91 02/28/25 07:05 Resp 18 02/28/25 07:05 BP 125/86 02/28/25 07:05 Pulse Ox 99 02/28/25 07:05 O2 Del Method Room Air 02/28/25 07:05 Allergies Allergy/AdvReac Type Severity Reaction Status Date / Time oseltamivir (From Tamiflu) Allergy Mild itching Verified 02/28/25 07:04 Home Medications ?Medication ?Instructions ?Recorded ?Confirmed ?Type atorvastatin 10 mg tablet (Lipitor) 10 mg PO DAILY 09/14/24 02/03/25 History clonazepam 0.5 mg tablet (Klonopin) 0.25 mg PO QHS PRN anxiety 09/14/24 02/03/25 History dapagliflozin propanediol 10 mg 10 mg PO DAILY 09/14/24 02/03/25 History tablet (Farxiga) Laboratory Tests 02/28/25 07:15 POC Capillary Glucose 230 H mg/dl (65-105) Patient hx anesthesia problems: none Family hx anesthesia problems: none Results Review: All pre-operative results and documents have been reviewed as part of the pre-operative evaluation. [facility] Social History Social History (Reviewed 10/19/24 @ 07:08 by Daniela Boateng [facility]) Smoking status: Never smoker Alcohol intake: never Substance use: never Do You Feel Safe in your Home?: Yes Lack of Transportation: No Lack of Food: Never True Current Housing: I Have Housing Concerned About Future Housing: No Difficulty Paying Gas/Electric Bills: No Difficulty Paying for Meds: No Currently Unemployed: No Education: Master's Degree or Higher Difficulty w/ Childcare or Family Care: No Anes - Eval Final PreProcedure Day of Procedure 02/28/25 07:29 Patient weight: obese Heart: regular rate and rhythm Lungs: clear to auscultation Airway: Mallampati scale class III Neurological: alert and oriented Last oral intake: >/= 8 hours ASA classification: III Emergent: no Anesthetic plan: proceed Anesthesia type and monitoring: general GIVS and standard monitoring Results Review: All pre-operative results and documents have been reviewed as part of the pre-operative evaluation. Informed Consent: The patient's anesthetic plan and its attendant risks and benefits were discussed with the patient/family/POA. Questions were solicited and answers provided to the satisfaction of the patient/family/POA.
--- NOTE | 2025-02-28 07:48 | P.HP_ITS ---
H&P: HPI History of Present Illness Date/Time: 02/28/25 07:48 Chief Complaint: Screening colonoscopy Narrative: This is the patient's 2nd colonoscopy. There are no GI symptoms and there is no family history of colorectal cancer. Review of Systems Review of Systems: All systems reviewed & are unremarkable except as noted in HPI and below [facility] Social History Social History Smoking status: Never smoker Alcohol intake: never Substance use: never Do You Feel Safe in your Home?: Yes Lack of Transportation: No Lack of Food: Never True Current Housing: I Have Housing Concerned About Future Housing: No Difficulty Paying Gas/Electric Bills: No Difficulty Paying for Meds: No Currently Unemployed: No Education: Master's Degree or Higher Difficulty w/ Childcare or Family Care: No Meds Home Medications and Allergies Home Medications ?Medication ?Instructions ?Recorded ?Confirmed ?Type atorvastatin 10 mg tablet (Lipitor) 10 mg PO DAILY 09/14/24 02/03/25 History clonazepam 0.5 mg tablet (Klonopin) 0.25 mg PO QHS PRN anxiety 09/14/24 02/03/25 History dapagliflozin propanediol 10 mg 10 mg PO DAILY 09/14/24 02/03/25 History tablet (Farxiga) Allergies Allergy/AdvReac Type Severity Reaction Status Date / Time oseltamivir (From Tamiflu) Allergy Mild itching Verified 02/28/25 07:04 Vital Signs Vital Signs - 24 hr 02/28/25 07:05 Temperature 97.3 F L Pulse Rate 91 Respiratory Rate 18 Blood Pressure 125/86 Pulse Oximetry 99 Oxygen Delivery Room Air Exam Const: General: cooperative and healthy appearing Resp: Effort & Inspection: normal respiratory effort and able to speak in complete sentences Auscultation: clear to auscultation bilaterally Cardio: Rate: regular rate Rhythm: regular rhythm GI: Inspection: normal to inspection GI Palp: No No hepatosplenomegaly present Auscultation: normal bowel sounds Rectal Exam: deferred Skin: General skin exam: normal color Psych: Appearance: grossly normal Mental Status: mental status grossly normal Assessment and Plan Assessment and plan (1) Encounter for screening colonoscopy: Code(s): Z12.11 - Encounter for screening for malignant neoplasm of colon Status: Acute Assessment and Plan: The patient is deemed a good candidate for the procedure. Consent signed. Will proceed.
--- NOTE | 2025-02-28 08:18 | S_PTH ---
PATIENT: Harley Ashton LOC: [facility] Landa#:[id number] AGE/SX: 59/M ROOM: RE02/28/[address]: Gm Carrington MD : 1965 BED: DIS: 02/28/2025 SPEC #: [id number] RECD: 02/28/25 10:13 STATUS: INNA REQ #: [id number] JUANITA: 02/28/25 08:[address]: Gm Carrington DEPT: [facility] Surgical RECD BY: Mónica Rangel ENTERED: 02/28/25 10:14 SP TYPE: Surgical OTHR DR: Mo HamMD Tissues: A - Colon Polypectomy B - Colon Polypectomy C - Colon Polypectomy D - Colon Polypectomy Procedures: Hematoxylin and Eosin Stain Gross and Microscopic Level 4
[2025-02-28 08:20] VITALS: BP 109/80; PULSE 95; RESP 20; O2SAT 98
[2025-02-28 08:30] VITALS: BP 108/81; PULSE 93; RESP 16; O2SAT 98
[2025-02-28 08:40] VITALS: BP 118/74; PULSE 84; RESP 20; O2SAT 99
== END 2025-02-28 08:55 | disposition home or self-care (01) ==
PROVIDERS: PCP Internal Medicine; Referring Provider Internal Medicine; Visit Provider Internal Medicine Gastroenterology
PROC: 0DJD8ZZ Inspection of Lower Intestinal Tract, Via Natural or Artificial Opening Endoscopic (ICD-10-PCS; CPT 45378; principal; 2025-02-28 08:00)
DX: Z12.11 Encounter for screening for malignant neoplasm of colon (principal); D12.2 Benign neoplasm of ascending colon; D12.4 Benign neoplasm of descending colon; K63.5 Polyp of colon; E66.9 Obesity, unspecified; Z68.30 Body mass index [BMI] 30.0-30.9, adult; Z79.84 Long term (current) use of oral hypoglycemic drugs
CPT/HCPCS: 45385; 82948; 88305; J2003; J2704; J7120